=== PATIENT | male | born 1935 | race Caucasian/White ===

== ENCOUNTER → 2016-06-20 | Outpatient (CLI) | payer MEDICARE, BC ==
[~2016-06-20] MED LIST: ALFU1TAB10 PO; AMLO5TAB2 PO; ASPI325T PO; ASPI81CH CHEW; CARV12.5 PO; CARV12.52 PO; CEPH-460 PO; CLOP75 PO; CYAN1000P IM; DYAZ37.52 PO; HYDR50TA15 PO; ISOS20TA PO; NIFE1TAB85 PO; RAPA8CAP PO; ROSU20 PO; TYLETAB34 PO
== END ==
LOC: ELAB 11:31
PROVIDERS: ATTEND Urology
DX: C61 Malignant neoplasm of prostate (principal); I10 Essential (primary) hypertension
CPT/HCPCS: 36415; 82565; 84132; 84153; 84295; 84520

== ENCOUNTER 2016-08-22 16:20 | Emergency (ER) | payer MEDICARE, BC ==
[~2016-08-22] VITALS: Ht 167.6 cm; Wt 60.0 kg
[~2016-08-22 16:20] MED LIST changes: -AMLO5TAB2 PO; -ASPI81CH CHEW; -CARV12.52 PO; -CEPH-460 PO; -CYAN1000P IM; -HYDR50TA15 PO; -ISOS20TA PO; -RAPA8CAP PO; -TYLETAB34 PO
[2016-08-22 16:21] VITALS: BP 118/68; PULSE 66; RESP 16; TEMP 98; O2SAT 98
[2016-08-22] MEDS ORDERED: HYDR50TA15 PO (19:47)
[2016-08-22] MEDS ORDERED: CARV12.52 PO (19:47)
[2016-08-22] MEDS ORDERED: ISOS20TA PO (19:47)
[2016-08-22] MEDS ORDERED: CYAN1000P IM (19:47)
[2016-08-22] MEDS ORDERED: ASPI81CH CHEW (19:47)
[2016-08-22] MEDS ORDERED: AMLO5TAB2 PO (19:47)
[2016-08-22] MEDS ORDERED: RAPA8CAP PO (19:47)
--- NOTE | 2016-08-22 19:55 | PD ---
HPI Chief Complaint: Laceration/Skin Injury Time Seen by Provider: 19:47 Travel History International Travel<30 days: No Contact w/Intl Traveler<30days: No Traveled to known affect area: No History of Present Illness HPI 81-year-old right-hand dominant male presents for evaluation laceration to the left index finger nail. He was using a table saw at 2-3 PM today when the table saw lacerated his finger. He has minimal pain which is aching, constant , worse with palpation. Last tetanus vaccination greater than 10 years ago. Denies any numbness or tingling or range of motion limitation. No other complaints. 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) Cardiovascular Problems: Yes High Cholesterol: Yes Cerebrovascular Accident: Yes (TIA X1) Coronary Artery Disease: Yes Diabetes: No Hepatitis: No Hiatal Hernia: No Hypertension: Yes Myocardial Infarction: Yes (2001, 2002) Thyroid Disease: No Past Surgical History Abdominal Surgery: No Cardiac Surgery: Yes (3 STENTS) Coronary Stent: Yes (X5) Ear Surgery: No Endocrine Surgery: No Eye Surgery: No Genitourinary Surgery: No Gynecologic Surgery: Yes (PROSTATE) Neurologic Surgery: No Oral Surgery: Yes (TONSILECTOMY) Thoracic Surgery: No Tonsillectomy: Yes Other Surgery: Yes Social History Alcohol Use: Yes (RARELY) Tobacco Use: Yes (4-5 CIGS DAILY) Substance Use: No Allergies-Medications (Allergen,Severity, Reaction): Coded Allergies: No Known Allergies (Verified , 12/12/10) Reported Meds & Prescriptions Reported Meds & Active Scripts Active Tylenol-Codeine #3 (Acetaminophen-Codeine) 300-30 mg Tab 1 Tab PO Q4H PRN Keflex (Cephalexin) 500 Mg Cap 500 Mg PO Q6H 7 Days Reported Aspirin 81 Mg Chew 81 Mg CHEW DAILY Rapaflo (Silodosin) 8 Mg Cap 8 Mg PO DAILY Carvedilol 12.5 Mg Tab 12.5 Mg PO BID Isosorbide Mononitrate 20 Mg Tab 30 Mg PO BID Take 2 doses 7 hours apart. Hydralazine (Hydralazine HCl) 50 Mg Tab 50 Mg PO TID Take with a meal Cyanocobalamin Inj (Cyanocobalamin) 1,000 Mcg/Ml Inj 1,000 Mcg IM ONCE Amlodipine (Amlodipine Besylate) 5 Mg Tab 5 Mg PO DAILY Review of Systems Musculoskeletal: No: Limited ROM Skin: Positive Other (positive for bleeding, laceration) Physical Exam Narrative GENERAL: Well-developed well-nourished male in no acute distress SKIN: Warm and dry. 1 cm linear laceration through the nail and nailbed of the left index finger. Mild bleeding with no pulsating blood. CARDIOVASCULAR: Regular rate and rhythm. No murmur appreciated. RESPIRATORY: No accessory muscle use. Clear to auscultation. Breath sounds equal bilaterally. Extremities: Skin as noted above. Capillary refill preserved. Sensation preserved. Data Data Last Documented VS Vital Signs Date Time Temp Pulse Resp B/P Pulse Ox O2 Delivery O2 Flow Rate FiO2 08/22/16 16:21 98.0 66 16 118/68 98 Orders Finger ([id number]) (08/22/16 ) Tetanus/Diphtheria Tox Adult (Tetanus/Di (08/22/16 20:00) Lidocaine Pf 1% Inj (Xylocaine-Mpf 1% In (08/22/16 20:00) Cefazolin Inj (Ancef Inj) (08/22/16 21:15) Wound Care (08/22/16 21:20) MDM Medical Decision Making Medical Screen Exam Complete: Yes Emergency Medical Condition: Yes Medical Record Reviewed: Yes Interpretation(s) Finger x-ray CONCLUSION: 1. There is a comminuted distal tuft fracture of the pointer finger with a soft tissue injury. 2. Chronic appearing multifocal arthropathy of the left hand and wrist as above. Differential Diagnosis Nail bed laceration, nail laceration, open tuft fracture Narrative Course Finger x-ray will be obtained. Tetanus status updated. The patient's nail will be removed and the nailbed will be repaired, he verbally consents. Finger x-ray confirms a distal tuft fracture. The patient will be given Ancef. He is being discharged with oral antibiotics and pain medication and outpatient follow -up with a hand specialist. Procedures Procedure Narrative LACERATION LOCATION: Left index finger LENGTH: 1 cm NUMBER OF STITCHES/BHUMI: 5 REPAIR: The area of the laceration was prepped with Betadine and sterilely draped. The laceration was infiltrated with 1% lidocaine digital block. The wound was copiously irrigated and explored without evidence of foreign body, tendon injury or neurovascular injury. The damaged nail was removed in order to close the underlying nail bed laceration. The wound was closed using 5-0 Vicryl simple interrupted. This was a single layer repair. A sterile dressing was applied. The patient was advised to keep the dressing clean and dry. Patient tolerated the procedure well. Diagnosis Primary Impression: Open fracture of tuft of distal phalanx of finger Qualified Code: S62.639B - Open fracture of tuft of distal phalanx of finger, initial encounter Referrals: Erick Jennings MD Additional Instructions: Gently wash the wound daily with soap and water and apply antibiotic cream and clean bandages per follow-up with a hand surgeon such as Dr. Jennings in the next 3-4 days, call to make an appointment. Medication as prescribed. Do not drive or drink alcohol when taking Tylenol with Codeine. Return for any emergent medical conditions. Med/Other Pt SpecificInfo: Prescription(s) given, Wound Care Scripts Acetaminophen-Codeine (Tylenol-Codeine #3)300-30 mg Tab1 Tab PO Q4H PRN (PAIN) # 20 TAB Ref 0 Prov:Olive Mccracken MD 08/22/16 Cephalexin (Keflex)500 Mg [id number] Mg PO Q6H 7 Days Ref 0 Prov:Olive Mccracken MD 08/22/16 Disposition: 01 DISCHARGE HOME Condition: Stable Thony Rene Aug 22, 2016 19:55
[2016-08-22] MEDS ORDERED: LIDOCAINE HCL 1% PF 30 ML VIAL INFIL ONE (20:00)
[2016-08-22] MEDS ORDERED: TETANUS/DIPHTHERIA TOXOID ADULT 0.5 ML VIAL IM ONE (20:00)
--- NOTE | 2016-08-22 20:48 | RADRPT ---
EXAM DATE/TIME: 08/22/2016 20:07 [facility] COMPARISON: No previous studies available for comparison. INDICATIONS : Laceration to the left 2nd digit from a table saw today. MEDICAL HISTORY : None. SURGICAL HISTORY : None. ENCOUNTER: Initial ACUITY: 1 day PAIN SCORE: 7/10 LOCATION: Left anterior distal 2nd digit. FINDINGS: Comminuted minimally displaced fracturing seen of the distal tuft of the pointer finger. There is an associated soft tissue injury. 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 There is moderate osteoarthritis also seen of the triscaphe joint. Mild volar subluxations and ulnar deviation seen ac ross the second through fifth metacarpophalangeal joints suggesting possible rheumatoid. No erosions are demonstrated. CONCLUSION: 1. There is a comminuted distal tuft fracture of the pointer finger with a soft tissue injury. 2. Chronic appearing multifocal arthropathy of the left hand and wrist as above. Amish Page MD on August 22, 2016 at 20:44 Board Certified Radiologist. This report was verified electronically.
[2016-08-22] MEDS ORDERED: TYLETAB34 PO (21:16)
[2016-08-22] MEDS ORDERED: CEPH-460 PO (21:16)
== END 2016-08-22 22:01 | disposition home or self-care (01) ==
LOC: NEPE 16:20
DX: S62.631B Displaced fracture of distal phalanx of left index finger, initial encounter for open fracture (principal); S61.311A Laceration without foreign body of left index finger with damage to nail, initial encounter; Z23 Encounter for immunization; W29.8XXA Contact with other powered hand tools and household machinery, initial encounter; Y93.9 Activity, unspecified; Y92.9 Unspecified place or not applicable; Y99.9 Unspecified external cause status
CPT/HCPCS: 11760; 73140; 90471; 90714; 96372; 99283; J0690

== ENCOUNTER 2016-08-23 06:39 | Emergency (ER) | payer MEDICARE, BC ==
[~2016-08-23] VITALS: Ht 170.2 cm; Wt 57.0 kg
[~2016-08-23 06:39] MED LIST changes: -ALFU1TAB10 PO; +AMLO5TAB2 PO; -ASPI325T PO; +ASPI81CH CHEW; -CARV12.5 PO; +CARV12.52 PO; +CEPH-460 PO; -CLOP75 PO; +CYAN1000P IM; -DYAZ37.52 PO; +HYDR50TA15 PO; +ISOS20TA PO; -NIFE1TAB85 PO; +RAPA8CAP PO; -ROSU20 PO; +TYLETAB34 PO
[2016-08-23 06:44] VITALS: BP 171/81; PULSE 84; RESP 16; TEMP 97.5; O2SAT 96
[2016-08-23] MEDS ORDERED: POVIDONE IODINE 10% OINT 30 GM TUBE TOPICAL ONE (07:15)
--- NOTE | 2016-08-23 07:15 | PD ---
HPI Chief Complaint: Wound/Suture/Staple Re-Check Time Seen by Provider: 07:14 Travel History International Travel<30 days: No Contact w/Intl Traveler<30days: No Traveled to known affect area: No History of Present Illness HPI 81-year-old male who sustained a open distal tuft fracture to his left second digit yesterday presents to the emergency department for evaluation of bleeding from the site. Patient was seen and evaluated and the wound was approximated and he was discharged this morning to follow-up with hand specialist. Patient states he woke up and there was "blood all over his bed." He states he does take aspirin 81 mg daily. No other anticoagulants. Does report pain at the site but has his antibiotic and pain control at home. No new injury. Denies any other symptoms. 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) Cardiovascular Problems: Yes High Cholesterol: Yes Cerebrovascular Accident: Yes (TIA X1) Coronary Artery Disease: Yes Diabetes: No Hepatitis: No Hiatal Hernia: No Hypertension: Yes Myocardial Infarction: Yes (2001, 2002) Thyroid Disease: No Past Surgical History Abdominal Surgery: No Cardiac Surgery: Yes (3 STENTS) Coronary Stent: Yes (X5) Ear Surgery: No Endocrine Surgery: No Eye Surgery: No Genitourinary Surgery: No Gynecologic Surgery: Yes (PROSTATE) Neurologic Surgery: No Oral Surgery: Yes (TONSILECTOMY) Thoracic Surgery: No Tonsillectomy: Yes Other Surgery: Yes Social History Alcohol Use: Yes (RARELY) Tobacco Use: Yes (4-5 CIGS DAILY) Substance Use: No Allergies-Medications (Allergen,Severity, Reaction): Coded Allergies: No Known Allergies (Verified , 12/12/10) Reported Meds & Prescriptions Reported Meds & Active Scripts Active Tylenol-Codeine #3 (Acetaminophen-Codeine) 300-30 mg Tab 1 Tab PO Q4H PRN Keflex (Cephalexin) 500 Mg Cap 500 Mg PO Q6H 7 Days Reported Aspirin 81 Mg Chew 81 Mg CHEW DAILY Rapaflo (Silodosin) 8 Mg Cap 8 Mg PO DAILY Carvedilol 12.5 Mg Tab 12.5 Mg PO BID Isosorbide Mononitrate 20 Mg Tab 30 Mg PO BID Take 2 doses 7 hours apart. Hydralazine (Hydralazine HCl) 50 Mg Tab 50 Mg PO TID Take with a meal Cyanocobalamin Inj (Cyanocobalamin) 1,000 Mcg/Ml Inj 1,000 Mcg IM ONCE Amlodipine (Amlodipine Besylate) 5 Mg Tab 5 Mg PO DAILY Review of Systems Except as stated in HPI: all other systems reviewed are Neg Physical Exam Narrative GENERAL: Well-nourished, well-developed elderly male patient, in no acute distress SKIN: Warm and dry. Laceration of the distal left second digit with small amount of sanguinous drainage. The nail is removed chcf but remains intact at the bed. Area is tender to touch. Sensation intact distal affected digit. HEAD: Normocephalic. EYES: No scleral icterus. No injection or drainage. NECK: Supple, trachea midline. No JVD or lymphadenopathy. CARDIOVASCULAR: Regular rate and rhythm without murmurs, gallops, or rubs. RESPIRATORY: Breath sounds equal bilaterally. No accessory muscle use. Data Data Last Documented VS Vital Signs Date Time Temp Pulse Resp B/P Pulse Ox O2 Delivery O2 Flow Rate FiO2 08/23/16 06:44 97.5 84 16 171/81 96 Orders Povidone Iodine 10% Oint (Betadine 10% O (08/23/16 07:15) [facility] Medical Decision Making Medical Screen Exam Complete: Yes Emergency Medical Condition: Yes Medical Record Reviewed: Yes Differential Diagnosis Wound dehiscence versus hemorrhage versus posttraumatic bleeding versus normal healing Narrative Course 81-year-old male presents to the emergency department for evaluation of bleeding from a laceration sustained last evening that was approximated here in emergency department. The wound appears intact. There is a small amount of the conus drainage from the site. I applied pressure and elevated the digit. Bleeding was stopped. Dressing was changed. Patient is encouraged to follow all discharge instructions and to follow-up with hand specialist as already instructed. He agrees to return immediately with any acute worsening symptoms. Diagnosis Primary Impression: Open fracture of tuft of distal phalanx of finger Qualified Code: S62.639D - Open fracture of tuft of distal phalanx of finger, with routine healing, subsequent encounter Additional Impression: Dressing change Referrals: Erick Jennings MD Primary Care Physician Patient Instructions: Acute Wound Care (ED), General Instructions Additional Instructions: Keep the area clean and dry Continue discharged instructions as given earlier. Elevate to reduce pain and pressure and to reduce bleeding Follow-up with Dr. Jennings, hand specialist. Call his office today for an appointment Return immediately to the emergency department with any acute worsening symptoms Med/Other Pt SpecificInfo: No Change to Meds Disposition: 01 DISCHARGE HOME Condition: Stable Aysha Zuleta Aug 23, 2016 07:14
== END 2016-08-23 07:54 | disposition home or self-care (01) ==
LOC: NEPB 06:39
DX: S62.639D Displaced fracture of distal phalanx of unspecified finger, subsequent encounter for fracture with routine healing (principal); X58.XXXD Exposure to other specified factors, subsequent encounter
CPT/HCPCS: 99282

== ENCOUNTER → 2017-04-12 | Outpatient (CLI) | payer MEDICARE, BC ==
[2017-04-12 12:05] LABS: ALT (GPT) 25 U/L (12-78); ANION GAP 9 MEQ/L (5-15); AST (GOT) 13 U/L (15-37); BICARBONATE 25.8 MEQ/L (21.0-32.0); BLOOD UREA NITROGEN 36 MG/DL (7-18); CHLORIDE 106 MEQ/L (98-107); GLUCOSE,FASTING 84 MG/DL (74-99); POTASSIUM 4.3 MEQ/L (3.5-5.1); SODIUM (NA) 141 MEQ/L (136-145)
[2017-04-12 12:14] LABS: ALKALINE PHOSPHATASE 69 U/L (45-117); FREE T4 1.18 NG/DL (0.76-1.46); GLOMERULAR FILTRATION RATE 23 ML/MIN (>89); HDL CHOLESTEROL 34.4 MG/DL (40.0-60.0); LDL CHOLESTEROL 76 MG/DL (0-99); TOTAL BILIRUBIN ADULT 0.3 MG/DL (0.2-1.0)
[2017-04-12 12:17] LABS: CREATINE KINASE 30 U/L (39-308)
== END ==
LOC: ELAB 09:34
PROVIDERS: ATTEND Internal Medicine Interventional Cardiology
DX: C61 Malignant neoplasm of prostate (principal); I50.32 Chronic diastolic (congestive) heart failure; I48.91 Unspecified atrial fibrillation; I42.9 Cardiomyopathy, unspecified; I25.10 Atherosclerotic heart disease of native coronary artery without angina pectoris; R06.09 Other forms of dyspnea; I10 Essential (primary) hypertension; E78.2 Mixed hyperlipidemia; Z79.899 Other long term (current) drug therapy; Z98.61 Coronary angioplasty status
CPT/HCPCS: 36415; 80053; 80061; 82550; 84153; 84439; 84443

== ENCOUNTER → 2017-04-27 | Outpatient (CLI) | payer MEDICARE, BC ==
[~2017-04-27] MED LIST changes: +ASPI-516 CHEW; -ASPI81CH CHEW
== END ==
LOC: ELAB 11:41
PROVIDERS: ATTEND Internal Medicine Interventional Cardiology
DX: I05.9 Rheumatic mitral valve disease, unspecified (principal)
CPT/HCPCS: 36415; 87040